=== PATIENT | female | born 1950 | race Caucasian/White ===

== ENCOUNTER 2021-06-20 08:03 | Outpatient (CLI) | payer OTHER ==
[~2021-06-20 08:03] MED LIST: ASA81 MG; AVALIDE 300-12.1 TA1; GLUCOPHAGE XR750 MG; INDUR; SKELAXIN800 MG PO; TOPROL XL25 M1
== END 2021-06-20 08:12 | disposition home or self-care (01) ==
LOC: RX STUDY 08:03
DX: K22.89 Other specified disease of esophagus (principal); E11.9 Type 2 diabetes mellitus without complications; R12 Heartburn; R07.89 Other chest pain; R07.2 Precordial pain; D50.8 Other iron deficiency anemias; R74.8 Abnormal levels of other serum enzymes; R74.01 Elevation of levels of liver transaminase levels; R16.0 Hepatomegaly, not elsewhere classified; K76.0 Fatty (change of) liver, not elsewhere classified; N28.1 Cyst of kidney, acquired; E66.8 Other obesity